=== PATIENT | male | born 1965 | race Caucasian/White ===

== ENCOUNTER 2022-04-26 18:14 | Inpatient (IN) | payer OTHER ==
[~2022-04-26] VITALS: Ht 175.3 cm; Wt 122.0 kg
[~2022-04-26 18:14] MED LIST: BYDUREON P2 MG/0.65 SQ; ENDOCET 10-3251 EACH PO; EYE ITCH RELIEF5 ML OP; GLUCOPHAGE 500500 MG PO; IBUPROFEN800 MG PO; METFORMIN HCL500 M2 PO; NEURONTIN 400400 MG PO; NORCO 10-325 T1 EACH PO; PRAVASTATIN SOD80 MG PO; ROXICODONE15 MG PO; XARELTO10 MG PO
[2022-04-26 19:42] LABS: HEMOGLOBIN 16.4 gm/dl (14.0-17.5); RED BLOOD COUNT 5.41 M/UL (4.20-5.50); WHITE BLOOD COUNT 13.6 K/UL (4.5-11.0)
[2022-04-26 20:00] LABS: BUN/CREATININE RATIO 16 (0-10)
[2022-04-27] MEDS ORDERED: FENOFIBRATE160 MG PO (11:35)
[2022-04-27] MEDS ORDERED: ELIQUIS5 MG PO (11:36)
[2022-04-27] MEDS ORDERED: HYDROCHLOROTH12.5 M1 PO (11:37)
[2022-04-27] MEDS ORDERED: BUPRENORPHINE-1 EACH SL (11:38)
[2022-04-27] MEDS ORDERED: LISINOPRIL10 MG PO (11:39)
[2022-04-27] MEDS ORDERED: METOPROLOL TART25 MG PO (11:40)
[2022-04-27] MEDS ORDERED: JARDIANCE25 MG PO (11:41)
[2022-04-27] MEDS ORDERED: LANTUS SOL100 UNIT/1 SQ (11:41)
[2022-04-27] MEDS ORDERED: NOVOLOG FL100 UNIT/1 SQ (11:44)
[2022-04-27] MEDS ORDERED: ISOSORBIDE MONO30 MG PO (11:44)
[2022-04-28 03:53] LABS: BUN/CREATININE RATIO 17 (0-10)
[2022-04-29 06:24] LABS: HEMOGLOBIN 15.1 gm/dl (14.0-17.5); RED BLOOD COUNT 5.06 M/UL (4.20-5.50); WHITE BLOOD COUNT 12.3 K/UL (4.5-11.0)
[2022-04-29 06:36] LABS: BUN/CREATININE RATIO 13 (0-10)
[2022-04-30 06:01] LABS: HEMOGLOBIN 13.8 gm/dl (14.0-17.5); RED BLOOD COUNT 4.65 M/UL (4.20-5.50); WHITE BLOOD COUNT 11.7 K/UL (4.5-11.0)
[2022-04-30 06:27] LABS: BUN/CREATININE RATIO 14 (0-10)
[2022-04-30] MEDS ORDERED: BETAPACE 80MG T80 MG PO (16:01)
[2022-04-30] MEDS ORDERED: ASPIRIN EC81 MG PO (16:01)
== END 2022-04-30 17:01 | disposition home or self-care (01) | DRG 287 ==
LOC: ER1 18:14 → MED SURG 4 20:45 → CDU 20:45 → MED SURG 4 23:14
PROVIDERS: Emergency Medicine; Internal Medicine; Physician Assistant; ADMIT Internal Medicine
PROC: B24BZZ4 Ultrasonography of Heart with Aorta, Transesophageal (ICD-10-PCS; principal; 2022-04-29)
PROC: 4A023N7 Measurement of Cardiac Sampling and Pressure, Left Heart, Percutaneous Approach (ICD-10-PCS; 2022-04-29)
PROC: 5A2204Z Restoration of Cardiac Rhythm, Single (ICD-10-PCS; 2022-04-29)
PROC: B2111ZZ Fluoroscopy of Multiple Coronary Arteries using Low Osmolar Contrast (ICD-10-PCS; 2022-04-29)
DX: I48.0 Paroxysmal atrial fibrillation (principal); F11.20 Opioid dependence, uncomplicated; Z20.822 Contact with and (suspected) exposure to COVID-19; E11.9 Type 2 diabetes mellitus without complications; I10 Essential (primary) hypertension; E66.01 Morbid (severe) obesity due to excess calories; K21.9 Gastro-esophageal reflux disease without esophagitis; E78.5 Hyperlipidemia, unspecified; I45.81 Long QT syndrome; F17.220 Nicotine dependence, chewing tobacco, uncomplicated; Z82.49 Family history of ischemic heart disease and other diseases of the circulatory system; Z79.01 Long term (current) use of anticoagulants; Z79.82 Long term (current) use of aspirin; Z79.4 Long term (current) use of insulin; Z98.890 Other specified postprocedural states; Z90.49 Acquired absence of other specified parts of digestive tract; Z68.39 Body mass index [BMI] 39.0-39.9, adult
CPT/HCPCS: ECHO; 36415; 71045; 80048; 80053; 80061; 82550; 82553; 82962; 83880; 84484; 85025; 92960; 93005; 93306; 93312; 93320; 96372; 99152; C1769; G0378; J1200; J1610; J1644; J1650; J1742; J2250; J2310; J3010; J7040; Q9967; U0002

== ENCOUNTER 2022-05-29 10:51 | Emergency (ER) | payer OTHER ==
[~2022-05-29 10:51] MED LIST changes: +ASPIRIN EC81 MG PO; +BETAPACE 80MG T80 MG PO; +BUPRENORPHINE-1 EACH SL; +ELIQUIS5 MG PO; +FENOFIBRATE160 MG PO; +HYDROCHLOROTH12.5 M1 PO; +ISOSORBIDE MONO30 MG PO; +JARDIANCE25 MG PO; +LANTUS SOL100 UNIT/1 SQ; +LISINOPRIL10 MG PO; +METOPROLOL TART25 MG PO; +NOVOLOG FL100 UNIT/1 SQ
[2022-05-29 12:40] LABS: HEMOGLOBIN 14.4 gm/dl (14.0-17.5); RED BLOOD COUNT 4.71 M/UL (4.20-5.50); WHITE BLOOD COUNT 9.8 K/UL (4.5-11.0)
[2022-05-29 13:06] LABS: BUN/CREATININE RATIO 18 (0-10)
[2022-05-29] MEDS ORDERED: PROTONIX40 MG PO (16:23)
== END 2022-05-29 16:40 | disposition home or self-care (01) ==
LOC: ER1 10:51
PROVIDERS: Physician Assistant
DX: I72.8 Aneurysm of other specified arteries (principal); E11.9 Type 2 diabetes mellitus without complications; I10 Essential (primary) hypertension; I48.91 Unspecified atrial fibrillation; E66.9 Obesity, unspecified; F17.220 Nicotine dependence, chewing tobacco, uncomplicated; Z90.49 Acquired absence of other specified parts of digestive tract
CPT/HCPCS: 71045; 80053; 81001; 82550; 82553; 83690; 83880; 84484; 85025; 85379; 93005; 96374; 96375; 99285